=== PATIENT | male | born 1950 | race Caucasian/White ===

== ENCOUNTER 2023-01-14 16:39 | Inpatient (IN) | payer OTHER ==
[~2023-01-14] VITALS: Ht 172.7 cm; Wt 81.6 kg
[~2023-01-14 16:39] MED LIST: ALPR0.5T20 PO; ATOR20TA40 PO; DEXT5SYR3 PO; FURO-570 PO; GABA300C PO; METO25TA PO; METR500S15 IV; PANT40EC56 PO; POTA8TAB17 PO; PRED10TA99 PO; ROC2I IV; ZGUARD TP
[2023-01-14 16:45] VITALS: BP 145/80
--- NOTE | 2023-01-14 16:45 | NUR ---
BIBA patient ambulatory with assistance into bed 06
--- NOTE | 2023-01-14 17:01 | NUR ---
72/M [facility] c/o bilateral feet edema x 5 days. Pt with chronic left shoulder pain x 10 months. Patient A&Ox4, ambulatory with assistance, states 10, pressure/intermittent, non-radiating pain that worsens with weight bearing. Patient noted with bilateral feet edema L>R; erythema to L foot. Denies SOB, chest pain, fever, chills, headache, blurry vision, slurred speech, nausea, vomiting, diarrhea, abdominal pain. chief service observer in place. Bed locked in lowest position, side rails x 2 for pt safety. 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
--- NOTE | 2023-01-14 17:12 | NUR ---
Dr. Valdovinos evaluating patient at bedside
--- NOTE | 2023-01-14 17:19 | NUR ---
RAD at bedside
--- NOTE | 2023-01-14 17:22 | NUR ---
EMT at bedside for EKG
--- NOTE | 2023-01-14 17:25 | NUR ---
Lab at bedside
[2023-01-14 17:57] LABS: BASOPHILS % (AUTO) 0.4 % (0.0-2.0); EOSINOPHILS # (AUTO) 0.3 K/uL (0-0.4); EOSINOPHILS % (AUTO) 3.1 % (0.0-4.0); HEMATOCRIT 42.3 % (36-52); HEMOGLOBIN 14.2 g/dL (12.0-18.0); LYMPHOCYTES # (AUTO) 0.7 K/uL (2.0-11.5); LYMPHOCYTES % (AUTO) 8.3 % (20.5-51.1); MEAN CORPUSCULAR HEMOGLOBIN 32 pg (27-31); MEAN CORPUSCULAR HGB CONC 34 g/dL (33-37); MEAN CORPUSCULAR VOLUME 95.9 fL (80-94); MONOCYTES # (AUTO) 0.8 K/uL (0.8-1.0); MONOCYTES % (AUTO) 9.2 % (1.7-9.3); NEUTROPHILS # (AUTO) 6.5 K/uL (1.8-7.7); PLATELET COUNT (AUTO) 146 K/uL (140-450); RED CELL DISTRIBUTION WIDTH 14.5 % (11.6-13.7); WHITE BLOOD COUNT (AUTO) 8.3 K/uL (4.8-10.8)
[2023-01-14 18:09] LABS: ALBUMIN 3.6 g/dL (3.4-5.0); ANION GAP 13.8 (8-16); ASPARTATE AMINOTRANSFERASE 16 U/L (15-37); CARBON DIOXIDE 24.2 mmol/L (21-32); CHLORIDE 109 mmol/L (98-107); CREATININE 1.6 mg/dL (0.6-1.3); GLUCOSE 114 mg/dL (74-106); SODIUM SERUM 143 mmol/L (136-145); TOTAL BILIRUBIN 0.3 mg/dL (0.0-1.0); UREA NITROGEN, BLOOD 29 mg/dL (7-18)
--- NOTE | 2023-01-14 18:57 | NUR ---
Lab contacted for new blood culture order
--- NOTE | 2023-01-14 19:27 | NUR ---
Report and transfer of care endorsed to DESIRAE Cabezas.
[2023-01-14] MEDS ORDERED: cefTRIAXone 1,000 MG VIAL ONE (19:35)
--- NOTE | 2023-01-14 19:35 | NUR ---
72 Y/O m presents with bilateral foot edema from [facility]. pt states pain is 6/10. pt is a&Ox4, skin intact, respirations even and unlabored. pt stated he is an addict and has reactions when he doesnt get his medications. pmh- CHF, HTN, AFIB, CVA x3 years ago R side deficit, hernia repair, appendectomy NKA
--- NOTE | 2023-01-14 20:00 | NUR ---
pt tolerated food well. pt stated " i did not get dinner."
[2023-01-14] MEDS: NACL 0.9% 1,000 ML IV SCH (20:41)
--- NOTE | 2023-01-14 20:45 | NUR ---
pt stated "i am an addict i need pain meds when i dont get them i have reactions."
--- NOTE | 2023-01-14 21:15 | NUR ---
pt awaiting admission. respirations even and unlabored
[2023-01-14] MEDS ORDERED: DIGO-80 PO (22:21)
[2023-01-14] MEDS ORDERED: GABA-636 PO (22:21)
[2023-01-14] MEDS ORDERED: FAMO-90 PO (22:21)
[2023-01-14] MEDS ORDERED: SPIR50TA PO (22:21)
[2023-01-14] MEDS ORDERED: FLONAS NS (22:21)
[2023-01-14] MEDS ORDERED: LOSA100T2 PO (22:21)
[2023-01-14] MEDS ORDERED: BISO5TAB23 PO (22:21)
[2023-01-14] MEDS ORDERED: IMO2 PO (22:21)
[2023-01-14] MEDS ORDERED: MULT-1868 PO (22:21)
[2023-01-14] MEDS ORDERED: ATI.5 PO (22:21)
[2023-01-14] MEDS ORDERED: ACET-8905 PO (22:21)
[2023-01-14] MEDS ORDERED: POTA10CE86 PO (22:21)
[2023-01-14] MEDS ORDERED: WITC1MED22 TP (22:21)
[2023-01-14] MEDS ORDERED: QUET25TA PO (22:21)
[2023-01-14] MEDS ORDERED: MIRT-91 PO (22:21)
[2023-01-14] MEDS ORDERED: ASPI-1129 PO (22:21)
[2023-01-14] MEDS ORDERED: TORS10TA PO (22:21)
--- NOTE | 2023-01-14 23:02 | NUR ---
Patient will be admitted to care of Dr. Reyes. Admited to tele. Will go to [id number]. Belongings list completed. Report to Frances ANTOINE.
[2023-01-14 23:05] VITALS: BP 126/82
--- NOTE | 2023-01-14 23:05 | NUR ---
RECEIVED PT FROM ER. PATIENT IS AWAKE,ALERT AND ORIENTED. DENIES PAIN AT THIS TIME. DENIES SHORTNESS OF BREATH. SKIN WARM AND DRY TO TOUCH. EDEMA NOTED ON BILATERAL LOWER EXTREMITIES/BILATERAL FEET, ELEVATED ON PILLOWS. MADE COMFORTABLE IN BED. SAFETY PRECAUTIONS IN PLACE, CALL LIGHT IN REACH, INSTRUCTION ON USE PROVIDED.
--- NOTE | 2023-01-15 00:05 | NUR ---
NEW ORDERS GIVEN BY DR. WALDROP. WILL CARRYOUT ORDERED.
[2023-01-15] MEDS ORDERED: GABAPENTIN 300 MG CAP PO SCH (00:06)
[2023-01-15] MEDS: HYDROcodone/APAP 5/325 MG 1 TAB TAB PO PRN ×3 (01:54→17:14)
[2023-01-15] MEDS: MORPHINE SULFATE 2 MG/ML SYR IVP PRN (03:26)
[2023-01-15 04:00] VITALS: BP 129/67
[2023-01-15 05:46] LABS: BASOPHILS % (AUTO) 0.6 % (0.0-2.0); EOSINOPHILS # (AUTO) 0.3 K/uL (0-0.4); EOSINOPHILS % (AUTO) 3.5 % (0.0-4.0); HEMATOCRIT 39.5 % (36-52); HEMOGLOBIN 13.2 g/dL (12.0-18.0); LYMPHOCYTES # (AUTO) 0.8 K/uL (2.0-11.5); LYMPHOCYTES % (AUTO) 10.3 % (20.5-51.1); MEAN CORPUSCULAR HEMOGLOBIN 32 pg (27-31); MEAN CORPUSCULAR HGB CONC 33 g/dL (33-37); MEAN CORPUSCULAR VOLUME 95.6 fL (80-94); MONOCYTES # (AUTO) 0.8 K/uL (0.8-1.0); MONOCYTES % (AUTO) 11.3 % (1.7-9.3); NEUTROPHILS # (AUTO) 5.5 K/uL (1.8-7.7); NEUTROPHILS % (AUTO) 74.3 % (42.2-75.2); PLATELET COUNT (AUTO) 137 K/uL (140-450); RED BLOOD CELL COUNT(AUTO) 4.13 MIL/uL (4.20-6.10); RED CELL DISTRIBUTION WIDTH 14.6 % (11.6-13.7); WHITE BLOOD COUNT (AUTO) 7.4 K/uL (4.8-10.8)
[2023-01-15] MEDS: NACL 0.9% 1,000 ML IV SCH ×2 (06:12→17:11)
[2023-01-15 06:23] LABS: ANION GAP 12.7 (8-16); CARBON DIOXIDE 21.9 mmol/L (21-32); CHLORIDE 112 mmol/L (98-107); CREATININE 1.3 mg/dL (0.6-1.3); GLUCOSE 112 mg/dL (74-106); POTASSIUM 3.6 mmol/L (3.5-5.1); SODIUM SERUM 143 mmol/L (136-145); UREA NITROGEN, BLOOD 23 mg/dL (7-18)
--- NOTE | 2023-01-15 06:30 | NUR ---
PATIENT IS ASLEEP. ALL NEEDS ATTENDED TO. NO DISTRESS NOTED. SAFETY PRECAUTIONS MAINTAINED DURING THE SHIFT, CALL LIGHT REMAINS WITHIN REACH.
[2023-01-15 08:03] VITALS: BP 111/79
[2023-01-15] MEDS: GABAPENTIN 300 MG CAP PO SCH ×3 (09:02→17:14)
--- NOTE | 2023-01-15 09:12 | NUR ---
PATIENT HAS BEEN SCREENED AND CATEGORIZED MODERATE NUTRITION RISK. PATIENT WILL BE SEEN WITHIN 3-5 DAYS OF ADMISSION. REVIEWED BY LOVE [address]ERNAN[address]
[2023-01-15 12:00] VITALS: BP 125/67
[2023-01-15] MEDS ORDERED: ALBUTEROL HFA MDI 90 MCG/ACTUATION 8 GM INH PRN (13:40)
--- NOTE | 2023-01-15 13:48 | NUR ---
WOUND CARE NOTE: PT. ADMITTED WITH CELLULITIS TO BLE. RLE MILD SWELLING WITH ERYTHEMA, NORMAL SKIN TEMP. SKIN INTACT. LEFT LOWER LEG TO DORSAL FOOT MODERATE SWELLING WITH ERYTHEMA, SKIN INTACT. POC DISCUSSED WITH PT. PT. VERBALIZES UNDERSTANDING. RECOMMENDATIONS -ELEVATED BILATERAL FEET WITH PILLOWS -APPLY BARRIERS CREAMS TO BLE/FEET BID AND BREANNE
--- NOTE | 2023-01-15 15:15 | NUR ---
DC PLANNING ASSESSMENT COMPLETE PLEASE REFER TO ASSESSMENT FOR ADDITIONAL DETAILS PT AND NILSON ADMIN, REPORT TENTATIVE DC PLAN IS FOR PT TO RETURN TO WHEN MEDICALLY STABLE. Addendum: 01/15/23 at 1516 by Paradise Crum SS Amended: Links added.
[2023-01-15 16:00] VITALS: BP 118/76
--- NOTE | 2023-01-15 16:52 | NUR ---
PATIENT SAYS HE HAS A 5.6 [CM ANEURYSM] AND WAS TOLD TO FOLLOW UP WITH [ASSAYER] IN 4 MONTHS TIME FRAME FROM HIS LAST EXAM. HE DOES NOT REMEMBER THE HOSPITAL AND HAS TROUBLE WORD FINDING.
[2023-01-15 20:00] VITALS: BP 134/78
[2023-01-15] MEDS: ALBUTEROL 0.083% 2.5 MG/3 ML NEBU INH PRN (20:24)
[2023-01-16] VITALS (7 sets, daily range): BP systolic 128–167; BP diastolic 75–96
[2023-01-16] MEDS: ALBUTEROL 0.083% 2.5 MG/3 ML NEBU INH PRN (00:10)
[2023-01-16] MEDS: MORPHINE SULFATE 2 MG/ML SYR IVP PRN (00:43)
--- NOTE | 2023-01-16 02:00 | NUR ---
PT HIT THE CALL LIGHT , PER PT . HE SO MUCH IN PAIN HE SAID NERVE PAIN , HE QUESTIONING THE FREQ. OF HIS GABAPENTIN . I REVIEWED THE PT'S EMAR AND PER RECORD CO GOT GABAPENTIN AT 171 , PER PT HE CAN'T REMEMBER IF HE GOT THE GABAPENTIN AT 171 . HE SAID THE NIGHT DUTY NURSE GIVE HIM MORPHINE TIV EARLIER BUT HE SAID IT SEEMS DOES NOT WORKS FOR HIS NERVE PAIN , HE SAID HIS NERVE PAIN IS BOTHERING HIM A LOT IT LEADS HIM HE CAN'T UNABLE TO GO TO SLEEP . IN ADDITION OF THIS THE PT SAID THE SOCIAL SERVICE MANAGER NURSE BECOMES MEAN TO HIM AND BECAUSE OF IT HE IS UNCOMFORTABLE WITH THAT NURSE WHO HANDLING TO HIM AT THIS TIME . I ' M ASKING THE PT IF HE WANTS TO CHANGE HIS NURSE HE SAID YES . IN ADDITION , PER PT HE HAS DIAGNOSED W/ GLAUCOMA AND HE HAS GLAUCOMA EYE DROP MED AND IT IS ALREADY 2 DAYS HE HAS NO EYE DROPS FOR HIS GLAUCOMA AND HE WORRYING HIS EYE PRESSURE WILL SHOOT UP BECAUSE NO EYE DROPS FOR GLAUCOMA FOR A DAYS AND HE DON'T LIKE TO BE BLIND . I WILL TELL TO THE NURSE TO INCLUDE THIS MATTER TO THIER MORNING ENDORSEMENT SO THAT THE MORNING NURSE WILL REMIND IT TO THE DOCTOR .
--- NOTE | 2023-01-16 02:01 | NUR ---
RECEIVED PT FROM ARASH LEHMAN. PT IS AOX4, BEDREST, ABLE TO VERBALIZE NEEDS AND ABLE TO FOLLOW COMMANDS. PT IS ON ROOM AIR AND ON RENAL DIET. PT HAS IV ON LEFT AC GAUGE 20, SALINE LOCK AND RIGHT WRIST GAUGE 20 RUNNING WITH NS AT 100 ML/HR. PT SKIN IS INTACT. ALL SAFETY MEASURES IMPLEMENTED. BED IN LOW POSITION, BED WHEELS ON LOCK AND CALL LIGHT WITHIN REACH.
--- NOTE | 2023-01-16 02:30 | NUR ---
CALLED THE PHARMACY IF PT CAN GIVE NORCO, [facility] PT ALREADY TOOK MORPHINE 90 MINS AGO. PHARMACIST ALLOWED TO GAVE NORCO TO PT IF MORPHINE IS NOT EFFECTIVE.
[2023-01-16] MEDS: HYDROcodone/APAP 5/325 MG 1 TAB TAB PO PRN ×3 (02:34→23:55)
--- NOTE | 2023-01-16 02:34 | NUR ---
PRN NORCO WAS GIVEN TO PT DUE TO NERVE PAIN WITH PAIN SCALE OF 6/10 ALL SAFETY MEASURES IMPLEMENTED. BED IN LOW POSITION, BED WHEELS ON LOCK AND CALL LIGHT WITHIN REACH.
[2023-01-16] MEDS: NACL 0.9% 1,000 ML IV SCH ×3 (02:45→22:05)
--- NOTE | 2023-01-16 04:00 | NUR ---
MORNING CARE WAS DONE TO PT. CHANGED LINENS, CHUCKS AND GOWN. NO COMPLAIN OF PAIN. NO S/S OF RESPIRATORY DISTRESS NOTED. ALL SAFETY MEASURES IMPLEMENTED. BED IN LOW POSITION, BED WHEELS ON LOCK AND CALL LIGHT WITHIN REACH.
--- NOTE | 2023-01-16 07:08 | NUR ---
PT IS STABLE. ENDORSED PT TO MORNING SHIFT NURSE FOR CONTINUITY OF CARE.
[2023-01-16] MEDS: GABAPENTIN 300 MG CAP PO SCH ×3 (09:11→17:08)
[2023-01-16] MEDS ORDERED: MORPHINE SULFATE 2 MG/ML SYR IVP PRN (10:45)
[2023-01-16] MEDS ORDERED: GABAPENTIN 100 MG CAP PO SCH (13:00)
[2023-01-16] MEDS: ALBUTEROL 0.083% 2.5 MG/3 ML NEBU INH SCH ×3 (13:00→19:15)
--- NOTE | 2023-01-16 16:43 | NUR ---
PATIENT REQUESTS SHOWER. ORDER GIVEN PER MD BAGLEY, HOWEVER , WHEN WALLPAPER SCRAPER ATTEMPT TO ASSIST TO SHOWER PATIENT UNABLE TO TRANSFER WITH SAFETY MEASURES IN PLACE. ASSIST WITH BED BATH, ORAL CARE, GOWN CHANGE, FOOT/SKIN/CELLULITIS AREA CARE.
--- NOTE | 2023-01-16 19:26 | NUR ---
REPORT WITH NIGHT TEAM RNDEEDEE, REQUESTS SNOWMAKER TO ASK MD TO HAVE BALDO JOSEPHN, MESSAGE SENT.
--- NOTE | 2023-01-16 19:27 | NUR ---
RECEIVED PT FROM MORNING SHIFT NURSE. PT IS AOX4, BEDREST, ABLE TO VERBALIZE NEEDS AND ABLE TO FOLLOW COMMANDS. PT IS ON ROOM AIR AND ON RENAL DIET. PT HAS IV ON LEFT AC GAUGE 20, SALINE LOCK AND RIGHT WRIST GAUGE 20 RUNNING WITH NS AT 100 ML/HR. PT SKIN IS INTACT BUT THERE'S LEFT FOOT REDNESS. ALL SAFETY MEASURES IMPLEMENTED. BED IN LOW POSITION, BED WHEELS ON LOCK AND CALL LIGHT WITHIN REACH.
[2023-01-16] MEDS ORDERED: LORazepam 1 MG TAB PO PRN (19:30)
--- NOTE | 2023-01-16 20:14 | NUR ---
SACHEDULED AND PRESCRIBED MEDICATION WAS GIVEN TO PT PER MD ORDER. ALL SAFETY MEASURES IMPLEMENTED. BED IN LOW POSITION, BED WHEELS ON LOCK AND CALL LIGHT WITHIN REACH.
--- NOTE | 2023-01-16 23:55 | NUR ---
PT WAS GIVEN PRN MEDICATION DUE TO LEFT FOOT PAIN WITH PAIN SCALE OF 6/10. ALL SAFETY MEASURES IMPLEMENTED. BED IN LOW POSITION, BED WHEELS ON LOCK AND CALL LIGHT WITHIN REACH.
[2023-01-17] MEDS: ALBUTEROL 0.083% 2.5 MG/3 ML NEBU INH SCH ×4 (00:09→19:22)
--- NOTE | 2023-01-17 02:00 | NUR ---
PT ASSISTED TO COMMODE. NO COMPLAIN OF PAIN AT THIS TIME. NO S/S RESPIRATORY DISTRESS NOTED. ALL SAFETY MEASURES IMPLEMENTED. BED IN LOW POSITION, BED WHEELS ON LOCK AND CALL LIGHT WITHIN REACH.
--- NOTE | 2023-01-17 04:00 | NUR ---
MORNING CARE WAS DONE TO PT. CHANGED LINENS, GOWN AND CHUCKS. PT DENIES PAIN. NO S/S OF RESPIRATORY DISTRESS NOTED. ALL SAFETY MEASURES IMPLEMENTED. BED IN LOW POSITION, BED WHEELS ON LOCK AND CALL LIGHT WITHIN REACH.
[2023-01-17 05:55] LABS: BASOPHILS % (AUTO) 0.2 % (0.0-2.0); EOSINOPHILS # (AUTO) 0.1 K/uL (0-0.4); EOSINOPHILS % (AUTO) 0.6 % (0.0-4.0); HEMATOCRIT 41.1 % (36-52); HEMOGLOBIN 14.1 g/dL (12.0-18.0); LYMPHOCYTES # (AUTO) 0.5 K/uL (2.0-11.5); LYMPHOCYTES % (AUTO) 4.6 % (20.5-51.1); MEAN CORPUSCULAR HEMOGLOBIN 33 pg (27-31); MEAN CORPUSCULAR HGB CONC 34 g/dL (33-37); MEAN CORPUSCULAR VOLUME 94.3 fL (80-94); MONOCYTES # (AUTO) 0.8 K/uL (0.8-1.0); MONOCYTES % (AUTO) 8.3 % (1.7-9.3); NEUTROPHILS # (AUTO) 8.7 K/uL (1.8-7.7); NEUTROPHILS % (AUTO) 86.3 % (42.2-75.2); PLATELET COUNT (AUTO) 145 K/uL (140-450); RED BLOOD CELL COUNT(AUTO) 4.35 MIL/uL (4.20-6.10); RED CELL DISTRIBUTION WIDTH 14.1 % (11.6-13.7); WHITE BLOOD COUNT (AUTO) 10.1 K/uL (4.8-10.8)
[2023-01-17 06:13] LABS: ALBUMIN 3.2 g/dL (3.4-5.0); ANION GAP 13.3 (8-16); ASPARTATE AMINOTRANSFERASE 19 U/L (15-37); CARBON DIOXIDE 22.5 mmol/L (21-32); CHLORIDE 108 mmol/L (98-107); CREATININE 1.2 mg/dL (0.6-1.3); GLUCOSE 134 mg/dL (74-106); POTASSIUM 3.8 mmol/L (3.5-5.1); SODIUM SERUM 140 mmol/L (136-145); TOTAL BILIRUBIN 0.6 mg/dL (0.0-1.0); UREA NITROGEN, BLOOD 16 mg/dL (7-18)
--- NOTE | 2023-01-17 07:20 | NUR ---
PT IS STABLE. ENDORSED PT TO MORNING SHIFT NURSE FOR CONTINUITY OF CARE.
--- NOTE | 2023-01-17 07:21 | NUR ---
RECEIVED PT FROM GENERAL ADMINISTRATOR NURSE FOR CONTINUITY OF CARE. PT IN AWAKE IN BED RECEIVING BREATHING TREATMENT. PT ABLE TO VERBALIZE NEEDS. IV ON R WRIST 20G INFUSING NS @100. CALL LIGHT WITHIN REACH, ALL SAFETY PRECAUTIONS IN PLACE.
[2023-01-17 08:00] VITALS: BP 174/98
[2023-01-17] MEDS: TIMOLOL OP 0.5% 5 ML BTL OP SCH (08:37)
[2023-01-17] MEDS: DIGOXIN 0.125 MG TAB PO SCH (08:39)
[2023-01-17] MEDS: GABAPENTIN 300 MG CAP PO SCH ×3 (08:39→16:25)
[2023-01-17] MEDS: LOSARTAN 25 MG TAB PO SCH (08:40)
[2023-01-17] MEDS: SPIRONOLACTONE 50 MG TAB PO SCH (08:41)
[2023-01-17] MEDS: APIXABAN 2.5 MG TAB PO SCH ×2 (08:42→21:44)
[2023-01-17] MEDS: NACL 0.9% 1,000 ML IV SCH ×2 (08:53→18:00)
[2023-01-17] MEDS ORDERED: ECOTRIN 81 MG TABEC PO SCH (09:00)
[2023-01-17] MEDS: MORPHINE SULFATE 4 MG/ML SYR IVP PRN ×2 (10:58→22:12)
[2023-01-17 16:00] VITALS: BP 151/100
--- NOTE | 2023-01-17 19:15 | NUR ---
ENDORSED PT TO WARPMAN NURSE FOR CONTINUITY OF CARE.
--- NOTE | 2023-01-17 21:44 | NUR ---
ADMINISTERED SCHEDULED MEDICATIONS. PATIENT AWAKE ALERT ORIENTED. NO SOB NOTED ON ROOM AIR. IVF NS INFUSING WELL. CALL LIGHT WITHIN REACH. ALL NEEDS ATTENDED TO. NO COMPLAINTS OF PAIN AT THIS TIME. SAFETY MEASURES IN PLACE. WILL CONTINUE TO MONITOR.
--- NOTE | 2023-01-17 22:12 | NUR ---
COMPLAINED OF SEVERE PAIN, MEDICATED ORDERED.
[2023-01-18] VITALS: BP 147/95
[2023-01-18] MEDS: HYDROcodone/APAP 5/325 MG 1 TAB TAB PO PRN ×2 (01:31→08:40)
[2023-01-18] MEDS: ALBUTEROL 0.083% 2.5 MG/3 ML NEBU INH SCH ×3 (01:36→13:44)
[2023-01-18] MEDS: NACL 0.9% 1,000 ML IV SCH ×3 (03:00→14:00)
[2023-01-18 08:00] VITALS: BP 148/67
[2023-01-18] MEDS: SPIRONOLACTONE 50 MG TAB PO SCH (08:30)
[2023-01-18] MEDS: LOSARTAN 25 MG TAB PO SCH (08:30)
[2023-01-18] MEDS: APIXABAN 2.5 MG TAB PO SCH (08:32)
[2023-01-18] MEDS: DIGOXIN 0.125 MG TAB PO SCH (08:33)
[2023-01-18] MEDS: GABAPENTIN 300 MG CAP PO SCH ×3 (08:34→17:37)
[2023-01-18] MEDS ORDERED: APIX2.5 PO (10:00)
[2023-01-18] MEDS ORDERED: CEPH-588 PO (10:00)
[2023-01-18] MEDS: TIMOLOL OP 0.5% 5 ML BTL OP SCH (11:29)
[2023-01-18] MEDS: MORPHINE SULFATE 4 MG/ML SYR IVP PRN (14:20)
[2023-01-18 17:25] VITALS: BP 136/86
--- NOTE | 2023-01-18 17:44 | NUR ---
Pt medicated for pain during shift as per EMAR. Pt received d/c order later. When paramedics arrived pt's saline locks removed, pt changed into home clothing, discharge papers given to paramedics and pt (signed), and then pt discharged via gurney to ambulance in stable condition and in no apparent distress.
== END 2023-01-18 17:54 | DRG 871 ==
LOC: MED 16:39 → MTU 20:04
DX: A41.9 Sepsis, unspecified organism (principal); N17.0 Acute kidney failure with tubular necrosis; L03.116 Cellulitis of left lower limb; I13.0 Hypertensive heart and chronic kidney disease with heart failure and stage 1 through stage 4 chronic kidney disease, or unspecified chronic kidney disease; I50.22 Chronic systolic (congestive) heart failure; I48.91 Unspecified atrial fibrillation; I70.0 Atherosclerosis of aorta; N18.9 Chronic kidney disease, unspecified; I73.9 Peripheral vascular disease, unspecified; Z20.822 Contact with and (suspected) exposure to COVID-19; Z79.01 Long term (current) use of anticoagulants; Z90.49 Acquired absence of other specified parts of digestive tract; Z79.82 Long term (current) use of aspirin; Z79.899 Other long term (current) drug therapy; Z79.891 Long term (current) use of opiate analgesic
CPT/HCPCS: 36415; 71045; 80048; 80053; 80162; 83880; 84484; 85025; 87040; 87081; 93005; 93925; 93970; 94640; 94664; 96374; 97112; 97116; 97163-GP; 97530; 99285; J0696; J2270; J7060; J7613; Q0092